=== PATIENT | male | born 1955 | race Caucasian/White ===

== ENCOUNTER 2018-02-05 09:41 | Emergency (ER) | payer OTHER ==
[2018-02-05] MEDS: NS 1,000 ML IV (10:18)
[2018-02-05 10:23] LABS: BASO # 0.1 10^3/uL (0.0-0.2); BASO % 0.3 % (0.0-1.0); EOS % 0.3 % (0.0-3.0); HEMOGLOBIN 16.6 g/dl (13.5-17.5); IMMATURE GRANULOCYTE % 0.4 % (0-3.0); LYMPH # 1.1 10^3/uL (1.5-4.5); LYMPH % 7.3 % (24.0-44.0); MEAN CORPUSCULAR HEMOGLOBIN 27.2 pg (27.0-33.0); MEAN CORPUSCULAR HGB CONC 33.2 g/dl (32.0-36.5); MONO # 1.1 10^3/uL (0.0-0.8); MONO % 6.9 % (0.0-5.0); NEUTROPHILS # 13.2 10^3/uL (1.8-7.7); NEUTROPHILS % 84.8 % (36.0-66.0); PLATELET COUNT, AUTOMATED 204 10^3/uL (150-450); RED CELL DISTRIBUTION WIDTH 13.2 % (11.5-14.5); WHITE BLOOD COUNT 15.6 10^3/uL (4.0-10.0)
[2018-02-05 10:42] LABS: INR 0.99; PROTHROMBIN TIME 13.2 SECONDS (12.1-14.4)
[2018-02-05 10:43] LABS: PARTIAL THROMBOPLASTIN TIME 25.9 SECONDS (25.4-37.6)
[2018-02-05 11:00] LABS: ALBUMIN 3.7 GM/DL (3.2-5.2); ALBUMIN/GLOBULIN RATIO 0.86 (1.00-1.93); ALKALINE PHOSPHATASE 93 U/L (45-117); ALT/SGPT 47 U/L (12-78); AMYLASE 69 U/L (25-115); ANION GAP 12 MEQ/L (8-16); AST/SGOT 32 U/L (7-37); BILIRUBIN,DIRECT < 0.1 MG/DL (0.0-0.2); BILIRUBIN,TOTAL 0.7 MG/DL (0.2-1.0); BLOOD UREA NITROGEN 14 MG/DL (7-18); CALCIUM LEVEL 8.9 MG/DL (8.8-10.2); CARBON DIOXIDE LEVEL 25 MEQ/L (21-32); CHLORIDE LEVEL 98 MEQ/L (98-107); CREATININE FOR GFR 0.92 MG/DL (0.70-1.30); GLOMERULAR FILTRATION RATE > 60.0 (>49); GLUCOSE, FASTING 280 MG/DL (70-100); LIPASE 496 U/L (73-393); POTASSIUM SERUM 4.6 MEQ/L (3.5-5.1); SODIUM LEVEL 135 MEQ/L (136-145)
[2018-02-05] MEDS ORDERED: ISOVUE-370 76% 100ML VIAL (Q9967) As Ordered (11:13)
[2018-02-05] MEDS: METOCLOPRAMIDE INJ 10MG/2ML VIAL (J2765) IV (11:33)
[2018-02-05] MEDS: MORPHINE 4 MG/ML 1ML VIAL/SYRINGE (J2270) IV (12:06)
== END 2018-02-05 14:10 | disposition home or self-care (01) ==
LOC: M ED 09:41
DX: K52.9 Noninfective gastroenteritis and colitis, unspecified (principal); I10 Essential (primary) hypertension; E11.9 Type 2 diabetes mellitus without complications; K21.9 Gastro-esophageal reflux disease without esophagitis
CPT/HCPCS: J2270

== ENCOUNTER → 2020-10-17 | Outpatient (CLI) | payer OTHER ==
[~2020-10-17] MED LIST: CIPR-249 PO; FLAG500T PO
[2020-10-17 12:28] LABS: INR 1.13; PROTHROMBIN TIME 14.8 SECONDS (12.5-14.3)
== END ==
LOC: M LAB 11:47
PROVIDERS: ATTEND Physician Assistant
DX: I25.118 Atherosclerotic heart disease of native coronary artery with other forms of angina pectoris (principal)

== ENCOUNTER → 2020-10-22 | Outpatient (CLI) | payer OTHER ==
[2020-10-22 11:48] LABS: INR 1.07; PROTHROMBIN TIME 14.1 SECONDS (12.5-14.3)
== END ==
LOC: M LAB 10:59
PROVIDERS: ATTEND Internal Medicine
DX: I25.810 Atherosclerosis of coronary artery bypass graft(s) without angina pectoris (principal)

== ENCOUNTER → 2020-10-27 | Outpatient (CLI) | payer OTHER ==
[2020-10-27 10:17] LABS: INR 1.4; PROTHROMBIN TIME 17.5 SECONDS (12.5-14.3)
== END ==
LOC: M LAB 09:46
PROVIDERS: ATTEND Internal Medicine
DX: Z79.01 Long term (current) use of anticoagulants (principal)

== ENCOUNTER → 2020-10-30 | Outpatient (CLI) | payer OTHER, SELFPAY ==
[2020-10-30 09:53] LABS: INR 1.54; PROTHROMBIN TIME 18.8 SECONDS (12.5-14.3)
== END ==
LOC: M LAB 08:55
PROVIDERS: ATTEND Internal Medicine
DX: Z79.01 Long term (current) use of anticoagulants (principal)

== ENCOUNTER → 2020-11-03 | Outpatient (CLI) | payer OTHER, SELFPAY ==
[2020-11-03 13:18] LABS: INR 1.5; PROTHROMBIN TIME 18.4 SECONDS (12.5-14.3)
== END ==
LOC: M LAB 10:53
PROVIDERS: ATTEND Internal Medicine
DX: Z79.01 Long term (current) use of anticoagulants (principal)

== ENCOUNTER → 2020-12-09 | Outpatient (CLI) | payer OTHER, SELFPAY ==
[2020-12-09 10:05] LABS: INR 2.41; PROTHROMBIN TIME 26.6 SECONDS (12.7-14.5)
== END ==
LOC: M LAB 09:20
PROVIDERS: ATTEND Internal Medicine
DX: Z79.01 Long term (current) use of anticoagulants (principal)

== ENCOUNTER → 2020-12-30 | Outpatient (CLI) | payer OTHER ==
[2020-12-30 11:58] LABS: INR 4.04; PROTHROMBIN TIME 39.5 SECONDS (12.7-14.5)
== END ==
LOC: M LAB 11:06
PROVIDERS: ATTEND Internal Medicine
DX: Z79.01 Long term (current) use of anticoagulants (principal)

== ENCOUNTER 2021-05-18 10:26 | Inpatient (IN) | payer OTHER ==
[~2021-05-18] VITALS: Ht 177.8 cm; Wt 90.9 kg
[2021-05-18] MEDS ORDERED: METO1TAB87 PO (10:45)
[2021-05-18] MEDS ORDERED: ATOR80TA59 PO (10:45)
[2021-05-18] MEDS ORDERED: ASPI1CHW3 PO (10:45)
[2021-05-18] MEDS ORDERED: LISI5TAB11 (10:45)
[2021-05-18] MEDS ORDERED: insulin (10:45)
[2021-05-18] MEDS ORDERED: NS 1,000 ML IV ONE (14:30)
[2021-05-18 16:03] LABS: BASO # 0.1 10^3/uL (0.0-0.2); BASO % 0.5 % (0.0-1.0); EOS # 0.2 10^3/uL (0.0-0.5); HEMOGLOBIN 12.5 g/dl (13.5-17.5); LYMPH # 1.9 10^3/uL (1.5-5.0); LYMPH % 17.7 % (24.0-44.0); MEAN CORPUSCULAR HEMOGLOBIN 28.7 pg (27.0-33.0); MEAN CORPUSCULAR HGB CONC 32.1 g/dl (32.0-36.5); MEAN CORPUSCULAR VOLUME 89.4 fl (80.0-96.0); MONO # 0.9 10^3/uL (0.0-0.8); MONO % 7.8 % (2.0-8.0); NEUTROPHILS # 7.8 10^3/uL (1.5-8.5); NEUTROPHILS % 71.8 % (36.0-66.0); PLATELET COUNT, AUTOMATED 268 10^3/uL (150-450); RED BLOOD COUNT 4.36 10^6/uL (4.30-6.10); WHITE BLOOD COUNT 10.9 10^3/uL (4.0-10.0)
[2021-05-18 16:14] LABS: PROTHROMBIN TIME 13.6 SECONDS (12.7-14.5)
[2021-05-18 16:15] LABS: PARTIAL THROMBOPLASTIN TIME 33.9 SECONDS (25.9-37.0)
[2021-05-18 16:28] LABS: ALBUMIN 3.4 GM/DL (3.2-5.2); BILIRUBIN,DIRECT 0.2 MG/DL (0.0-0.2); BILIRUBIN,TOTAL 0.5 MG/DL (0.2-1.0); C REACTIVE PROTEIN QUANTITATIV 3.61 MG/DL (0.00-0.30); CALCIUM LEVEL 9.3 MG/DL (8.8-10.2); CREATININE FOR GFR 1.29 MG/DL (0.70-1.30); GLOMERULAR FILTRATION RATE 59.7 (>49); POTASSIUM SERUM 4.6 MEQ/L (3.5-5.1); TOTAL PROTEIN 7.6 GM/DL (6.4-8.2)
[2021-05-18 16:39] LABS: ERYTHROCYTE SEDIMENTATION RATE 62 mm/hr (0-20)
[2021-05-18] MEDS ORDERED: VANCOMYCIN HCL 1,750 MG in IV FLUID PLACE HOLDER 1 EA IV ONE (17:05)
[2021-05-18] MEDS ORDERED: GLUCAGON INJ 1MG VIAL SC PRN (17:35)
[2021-05-18] MEDS ORDERED: ACETAMINOPHEN TAB 650MG DOSE (2X325MG) PO PRN (17:35)
[2021-05-18] MEDS ORDERED: DEXTROSE 50% 50 ML SYRINGE IV PRN (17:35)
[2021-05-18] MEDS ORDERED: GLUCOSE 4GM CHEW TABLET PO PRN (17:35)
[2021-05-18] MEDS ORDERED: VANCOMYCIN HCL 750 MG, VIAL MATE ADAPTER 1 EACH in NS 250 ML IV ONE (18:00)
[2021-05-18] MEDS ORDERED: VANCOMYCIN HCL 1,000 MG, VIAL MATE ADAPTER 1 EACH in NS 250 ML IV ONE (18:00)
[2021-05-18] MEDS ORDERED: INSULADS SC (18:02)
[2021-05-18] MEDS ORDERED: LISI20TA33 PO (18:02)
[2021-05-18] MEDS ORDERED: HOME MED LIST COMPLETE! XX SCH (18:05)
[2021-05-18] MEDS: HumaLOG INSULIN (NovoLOG) PER UNIT SC SCH ×2 (19:02→21:00)
[2021-05-18] MEDS: LEVEMIR (INSULIN DETEMIR) 1 UNITS/0.01ML SC SCH (21:16)
[2021-05-18 23:00] VITALS: BP 204/98
[2021-05-18] MEDS ORDERED: PERCOCET 5MG/325MG TAB PO PRN (23:35)
[2021-05-19] VITALS (8 sets, daily range): BP systolic 135–175; BP diastolic 56–116
[2021-05-19] MEDS: PERCOCET 5MG/325MG TAB PO PRN ×4 (04:37→22:05)
[2021-05-19 07:04] LABS: BASO % 0.4 % (0.0-1.0); EOS # 0.3 10^3/uL (0.0-0.5); EOS % 2.7 % (0.0-3.0); HEMATOCRIT 35.3 % (42.0-52.0); HEMOGLOBIN 11.4 g/dl (13.5-17.5); LYMPH # 1.3 10^3/uL (1.5-5.0); LYMPH % 13.7 % (24.0-44.0); MEAN CORPUSCULAR HEMOGLOBIN 28.6 pg (27.0-33.0); MEAN CORPUSCULAR HGB CONC 32.3 g/dl (32.0-36.5); MEAN CORPUSCULAR VOLUME 88.5 fl (80.0-96.0); MONO % 10.2 % (2.0-8.0); NEUTROPHILS # 6.8 10^3/uL (1.5-8.5); NEUTROPHILS % 72.6 % (36.0-66.0); PLATELET COUNT, AUTOMATED 253 10^3/uL (150-450); RED BLOOD COUNT 3.99 10^6/uL (4.30-6.10); WHITE BLOOD COUNT 9.4 10^3/uL (4.0-10.0)
[2021-05-19 07:25] LABS: BLOOD UREA NITROGEN 25 MG/DL (7-18); CALCIUM LEVEL 8.8 MG/DL (8.8-10.2); CARBON DIOXIDE LEVEL 28 MEQ/L (21-32); CHLORIDE LEVEL 107 MEQ/L (98-107); CREATININE FOR GFR 1.07 MG/DL (0.70-1.30); GLOMERULAR FILTRATION RATE > 60.0 (>49); GLUCOSE, FASTING 109 MG/DL (70-100); POTASSIUM SERUM 4.1 MEQ/L (3.5-5.1); SODIUM LEVEL 138 MEQ/L (136-145)
[2021-05-19] MEDS: HumaLOG INSULIN (NovoLOG) PER UNIT SC SCH ×4 (07:30→21:00)
[2021-05-19] MEDS: ATORVASTATIN 20 MG TAB PO SCH (08:50)
[2021-05-19] MEDS: METOPROLOL TART 25 MG TABLET PO SCH (08:50)
[2021-05-19] MEDS: ASPIRIN 81 MG CHEW TABLET PO SCH (08:50)
[2021-05-19] MEDS ORDERED: D5W/0.45% SODIUM CHLORIDE 1,000 ML IV SCH (12:30)
[2021-05-19] MEDS ORDERED: LIDOCAINE 1% MDV 20ML VIAL As Ordered ONE (15:44)
[2021-05-19] MEDS ORDERED: BUPIVACAINE HCL 0.5% 10ML VIAL As Ordered ONE (15:44)
[2021-05-19] MEDS ORDERED: propofoL 200 MG/20 ML VIAL As Ordered ONE (16:52)
[2021-05-19] MEDS ORDERED: MIDAZOLAM INJ 2MG/2ML VIAL (J2250 PER 1MG) As Ordered ONE (16:52)
[2021-05-19] MEDS ORDERED: fentaNYL 100 MCG/2 ML INJECTION (J3010) As Ordered ONE (16:52)
[2021-05-19] MEDS ORDERED: LR 1,000 ML IV SCH (17:40)
[2021-05-19] MEDS ORDERED: oxyCODONE 5MG TAB PO PRN (17:40)
[2021-05-19] MEDS ORDERED: ONDANSETRON 4MG/2ML VIAL IV PRN (17:40)
[2021-05-19] MEDS: LEVEMIR (INSULIN DETEMIR) 1 UNITS/0.01ML SC SCH (22:05)
[2021-05-20 02:00] VITALS: BP 200/95
[2021-05-20] MEDS ORDERED: **hydrALAZINE** 50 MG TAB PO ONE (02:40)
[2021-05-20] MEDS: PERCOCET 5MG/325MG TAB PO PRN ×4 (03:12→21:11)
[2021-05-20 06:00] VITALS: BP 145/63
[2021-05-20 06:35] LABS: BASO # 0.1 10^3/uL (0.0-0.2); BASO % 0.5 % (0.0-1.0); EOS # 0.3 10^3/uL (0.0-0.5); EOS % 2.8 % (0.0-3.0); HEMATOCRIT 39.5 % (42.0-52.0); HEMOGLOBIN 12.6 g/dl (13.5-17.5); LYMPH # 1.4 10^3/uL (1.5-5.0); LYMPH % 14.8 % (24.0-44.0); MEAN CORPUSCULAR HEMOGLOBIN 28.5 pg (27.0-33.0); MEAN CORPUSCULAR HGB CONC 31.9 g/dl (32.0-36.5); MEAN CORPUSCULAR VOLUME 89.4 fl (80.0-96.0); MONO # 0.9 10^3/uL (0.0-0.8); MONO % 9.1 % (2.0-8.0); NEUTROPHILS # 6.8 10^3/uL (1.5-8.5); NEUTROPHILS % 72.5 % (36.0-66.0); PLATELET COUNT, AUTOMATED 285 10^3/uL (150-450); RED BLOOD COUNT 4.42 10^6/uL (4.30-6.10); WHITE BLOOD COUNT 9.4 10^3/uL (4.0-10.0)
[2021-05-20 07:09] LABS: BLOOD UREA NITROGEN 20 MG/DL (7-18); CALCIUM LEVEL 9.1 MG/DL (8.8-10.2); CARBON DIOXIDE LEVEL 32 MEQ/L (21-32); CHLORIDE LEVEL 102 MEQ/L (98-107); GLOMERULAR FILTRATION RATE > 60.0 (>49); GLUCOSE, FASTING 119 MG/DL (70-100); POTASSIUM SERUM 4.2 MEQ/L (3.5-5.1); SODIUM LEVEL 136 MEQ/L (136-145)
[2021-05-20 07:13] LABS: HEMOGLOBIN A1c 8.7 %
[2021-05-20] MEDS: HumaLOG INSULIN (NovoLOG) PER UNIT SC SCH ×4 (08:57→21:00)
[2021-05-20] MEDS: ASPIRIN 81 MG CHEW TABLET PO SCH (08:57)
[2021-05-20 08:58] VITALS: BP 147/65
[2021-05-20] MEDS: METOPROLOL TART 25 MG TABLET PO SCH (08:58)
[2021-05-20] MEDS: ATORVASTATIN 20 MG TAB PO SCH (08:58)
[2021-05-20] MEDS ORDERED: FLUBLOK(EGG FREE)(QUAD)INFLUENZA VACC 0.5ML SYRINGE 18YRS & OLDER IM ONE (13:00)
[2021-05-20 19:54] VITALS: BP 167/83
[2021-05-20] MEDS: LEVEMIR (INSULIN DETEMIR) 1 UNITS/0.01ML SC SCH (21:10)
[2021-05-20 22:40] VITALS: BP 152/73
== END 2021-05-20 23:00 | DRG 617 ==
LOC: M ED 10:26 → M ED INP 17:34 → M MS5PR 23:21
PROVIDERS: ADMIT Family Medicine; ATTEND Family Medicine
PROC: 0Y6X0Z0 Detachment at Right 5th Toe, Complete, Open Approach (ICD-10-PCS; 2021-05-19)
PROC: 0Y6V0Z0 Detachment at Right 4th Toe, Complete, Open Approach (ICD-10-PCS; principal; 2021-05-19 15:00)
DX: E11.69 Type 2 diabetes mellitus with other specified complication (principal); L97.429 Non-pressure chronic ulcer of left heel and midfoot with unspecified severity; M86.9 Osteomyelitis, unspecified; E11.52 Type 2 diabetes mellitus with diabetic peripheral angiopathy with gangrene; E11.621 Type 2 diabetes mellitus with foot ulcer; I10 Essential (primary) hypertension; I25.10 Atherosclerotic heart disease of native coronary artery without angina pectoris; Z88.5 Allergy status to narcotic agent; Z79.4 Long term (current) use of insulin; L97.519 Non-pressure chronic ulcer of other part of right foot with unspecified severity

== ENCOUNTER → 2021-11-22 | Outpatient (REF) | payer OTHER ==
[~2021-11-22] MED LIST changes: +ASPI1CHW3 PO; +ATOR80TA59 PO; +INSULADS SC; +LISI20TA33 PO; +LISI5TAB11; +METO1TAB87 PO; +insulin
== END ==
LOC: M LAB REF 17:08
PROVIDERS: ATTEND Podiatrist Foot & Ankle Surgery
DX: M86.171 Other acute osteomyelitis, right ankle and foot (principal)

== ENCOUNTER → 2022-09-29 | Outpatient (CLI) | payer MEDICARE, OTHER ==
[~2022-09-29] MED LIST changes: +ASPI-655 PO; -ASPI1CHW3 PO; +ISOVUE-370 76% 100ML VIAL As Ordered ONE
== END ==
LOC: M RAD 13:57
DX: I73.9 Peripheral vascular disease, unspecified (principal)
CPT/HCPCS: 75635; Q9967